=== PATIENT | male | born 1980 | race Caucasian/White ===

== ENCOUNTER 2019-06-19 11:43 | Outpatient (RCR) | payer MEDICAID | END 2019-09-17 | disposition home or self-care (01) | LOC: ONC 11:43 | PROVIDERS: ATTEND Radiology Radiation Oncology | DX: M61.5 Other ossification of muscle (principal); I10 Essential (primary) hypertension; Z79.899 Other long term (current) drug therapy | CPT/HCPCS: 77280; 77300; 77402; 99205 ==